=== PATIENT | female | born 1985 | race Caucasian/White ===

== ENCOUNTER 2017-01-28 23:55 | Emergency (ER) | payer BC ==
[~2017-01-28] VITALS: Ht 162.6 cm; Wt 54.0 kg
[2017-01-28 23:59] VITALS: BP_SYST 135
[2017-01-29] MEDS ORDERED: methylPREDNISolone SOD SUCC/PF 62.5 MG/ML VIAL IM ONE (00:15)
[2017-01-29 01:09] VITALS: BP_SYST 135
== END 2017-01-29 01:09 | disposition home or self-care (01) ==
LOC: SED 23:55
DX: T78.1XXA Other adverse food reactions, not elsewhere classified, initial encounter (principal); L50.9 Urticaria, unspecified; Z88.1 Allergy status to other antibiotic agents; X58.XXXA Exposure to other specified factors, initial encounter
CPT/HCPCS: 96372; 99283; J2930